=== PATIENT | female | born 1960 | race Caucasian/White ===

== ENCOUNTER 2021-08-31 22:56 | Inpatient (IN) | payer MEDICARE, SELFPAY ==
[2021-08-31 23:28] LABS: #Eosinphils 0.1 10x3/uL (0.0-0.5); #Monocytes 0.8 10x3/uL (0.0-1.1); #Neutrophils 3.2 10x3/uL (1.5-8.4); %Basophils 0.6 % (0.0-2.0); %Eosinophils 1.4 % (0.0-6.0); %Lymphocytes 41.6 % (18.0-47.0); %Monocytes 10.9 % (0.0-10.0); %Neutrophils 45.2 % (40.0-75.0); Hemoglobin 13.9 g/dL (12.0-15.5); Mean Corpuscular HGB CONC 33.9 g/dL (32.0-36.0); Mean Corpuscular Hemoglobin 29.2 pg (27.0-33.0); Mean Corpuscular Volume 86.1 fl (81.6-98.3); Platelet Count 337 10x3/uL (150-450); Red Blood Cell (RBC) Count 4.76 10x6/uL (3.90-5.03); White Blood Cell (WBC) Count 7.1 10x3/uL (3.5-10.5)
[2021-08-31 23:38] LABS: ALT (SGPT) 43 U/L (8-55); AST (SGOT) 19 U/L (5-34); Albumin 4.3 g/dL (3.5-5.0); Alkaline Phosphatase 125 U/L (40-110); Anion Gap 14 mmol/L (10-20); BUN (Urea Nitrogen) 11 mg/dL (9.8-20.1); Bilirubin, Total 0.2 mg/dL (0.2-1.2); Calc. Creatinine Clearance 0 mL/min (70-130); Calcium 9.4 mg/dL (7.8-10.44); Carbon Dioxide 29 mmol/L (22-29); Chloride 102 mmol/L (98-107); Globulin 2.6 g/dL (2.4-3.5); Glucose 131 mg/dL (70-105); Potassium 4.3 mmol/L (3.5-5.1); Protein, Total 6.9 g/dL (6.0-8.3); Sodium 141 mmol/L (136-145)
[2021-09-01] MEDS ORDERED: Morphine 4 MG/ML VIAL ONE ×2 (00:03→01:43)
[2021-09-01] MEDS ORDERED: Promethazine HCl 25 MG/ML VIAL ONE (00:03)
[2021-09-01] MEDS ORDERED: Guaifenesin DM 100-10/5 ML UDCUP PO PRN (01:45)
[2021-09-01] MEDS ORDERED: Calcium Carbonate 500 MG ChewTAB PO PRN (01:45)
[2021-09-01] MEDS ORDERED: Senokot S 8.6-50 MG TAB PO PRN (01:45)
[2021-09-01] MEDS ORDERED: Acetaminophen 325 MG TAB PO PRN (01:45)
[2021-09-01] MEDS ORDERED: Nitroglycerin 0.4 MG TAB (25 Tab Bottle) SL PRN (01:46)
[2021-09-01] MEDS ORDERED: Metoprolol Tartrate 25 MG TAB PO SCH (02:00)
[2021-09-01 02:25] VITALS: BMI 30.9
[2021-09-01] MEDS: HYDROcodone/Acetaminophen 5/325 mg Tablet PO PRN ×3 (02:36→10:54)
[2021-09-01] MEDS ORDERED: traZODone HCl 50 MG TAB PO SCH (03:30)
[2021-09-01] MEDS ORDERED: busPIRone HCl 15 MG TAB PO SCH ×3 (04:00→21:45)
[2021-09-01 04:10] LABS: SARS-CoV-2 NAA Rapid Test Not Detected (NotDetected)
[2021-09-01 05:01] LABS: Cardiac Risk 3.1 (Less than 4.5)
[2021-09-01] MEDS: Levothyroxine Sodium 25 MCG TAB PO SCH (06:29)
[2021-09-01] MEDS: Levothyroxine Sodium 112 MCG TAB PO SCH (06:29)
[2021-09-01] MEDS ORDERED: Sodium Chloride 0.9% 500 ML IV SCH (08:30)
[2021-09-01] MEDS ORDERED: Carvedilol 25 MG TAB PO SCH (09:00)
[2021-09-01] MEDS: Clopidogrel Bisulfate 75 MG TAB PO SCH (10:25)
[2021-09-01] MEDS: Amlodipine 10 MG TAB PO SCH (10:53)
[2021-09-01] MEDS: Enoxaparin Sodium 40 MG/0.4 ML SYRINGE SC SCH (10:55)
[2021-09-01 12:36] LABS: Hemoglobin A1c 5.5 % (4.0-6.0)
[2021-09-01 15:06] LABS: Amphetamine Not Detected (NotDetected); Barbiturates Screen Not Detected (NotDetected); Benzodiazepine Screen Not Detected (NotDetected); Cocaine Metabolite Screen Not Detected (NotDetected); Methadone Not Detected (NotDetected); Methamphetamine Not Detected (NotDetected); Opiate Screen Detected (NotDetected); Oxycodone Screen Not Detected (NotDetected); Phencyclidine (PCP) Not Detected (NotDetected); THC/Cannabinoid Screen Not Detected (NotDetected); Tricyclic Screen Detected (NotDetected)
[2021-09-01] MEDS: Morphine 2 MG/ML VIAL SLOW IVP PRN ×2 (15:14→20:51)
[2021-09-01] MEDS: Ondansetron PF 4 MG/2 ML Vial IVP PRN (15:15)
[2021-09-01] MEDS: Promethazine HCl 25 MG in Sodium Chloride 0.9% 50 ML IVPB PRN (17:05)
[2021-09-01] MEDS: traZODone HCl 50 MG TAB PO SCH (20:48)
[2021-09-01] MEDS ORDERED: Atorvastatin Calcium 40 MG TAB PO SCH (21:00)
[2021-09-02] MEDS: Levothyroxine Sodium 25 MCG TAB PO SCH (06:50)
[2021-09-02] MEDS: Levothyroxine Sodium 112 MCG TAB PO SCH (06:50)
[2021-09-02 08:31] LABS: Anion Gap 13 mmol/L (10-20); BUN (Urea Nitrogen) 12 mg/dL (9.8-20.1); Calc. Creatinine Clearance 82 mL/min (70-130); Calcium 8.9 mg/dL (7.8-10.44); Carbon Dioxide 31 mmol/L (22-29); Chloride 105 mmol/L (98-107); Glucose 97 mg/dL (70-105); Magnesium 2.1 mg/dL (1.6-2.6); Potassium 4.3 mmol/L (3.5-5.1); Sodium 145 mmol/L (136-145)
[2021-09-02] MEDS ORDERED: busPIRone HCl 15 MG TAB PO SCH (09:00)
[2021-09-02] MEDS: busPIRone HCl 15 MG TAB PO SCH ×2 (09:33→22:14)
[2021-09-02] MEDS: Amlodipine 10 MG TAB PO SCH (09:33)
[2021-09-02] MEDS: Venlafaxine HCl XR 75 MG CAP PO SCH (09:33)
[2021-09-02] MEDS: Clopidogrel Bisulfate 75 MG TAB PO SCH (09:34)
[2021-09-02] MEDS: HYDROcodone/Acetaminophen 5/325 mg Tablet PO PRN ×4 (09:34→22:14)
[2021-09-02] MEDS: Enoxaparin Sodium 40 MG/0.4 ML SYRINGE SC SCH (09:34)
[2021-09-02] MEDS: Promethazine HCl 25 MG in Sodium Chloride 0.9% 50 ML IVPB PRN ×3 (11:42→23:53)
[2021-09-02 15:01] LABS: ALT (SGPT) 358 U/L (8-55); AST (SGOT) 234 U/L (5-34); Albumin 3.5 g/dL (3.5-5.0); Alkaline Phosphatase 141 U/L (40-110); Bilirubin, Direct 0.1 mg/dL (0.1-0.3); Bilirubin, Total 0.3 mg/dL (0.2-1.2); Lipase 36 U/L (8-78); Protein, Total 5.8 g/dL (6.0-8.3)
[2021-09-02] MEDS ORDERED: Lidocaine 2% Viscous Solution 20 ML, Aluminum & Magnesium Hydroxide 30 ML SSW SCH (18:00)
[2021-09-02 18:51] LABS: #Basophils 0.1 10x3/uL (0.0-0.2); #Eosinphils 0.1 10x3/uL (0.0-0.5); #Monocytes 0.5 10x3/uL (0.0-1.1); %Basophils 0.9 % (0.0-2.0); %Eosinophils 2.4 % (0.0-6.0); %Lymphocytes 43.1 % (18.0-47.0); %Monocytes 8.9 % (0.0-10.0); Hemoglobin 13.9 g/dL (12.0-15.5); Mean Corpuscular HGB CONC 33.5 g/dL (32.0-36.0); Mean Corpuscular Hemoglobin 28.8 pg (27.0-33.0); Mean Corpuscular Volume 85.9 fl (81.6-98.3); Mean Platelet Volume 10.2 fl (7.4-10.4); Platelet Count 321 10x3/uL (150-450); RBC Distribution Width 13.1 % (11.5-14.5); Red Blood Cell (RBC) Count 4.83 10x6/uL (3.90-5.03); White Blood Cell (WBC) Count 5.8 10x3/uL (3.5-10.5)
[2021-09-02 19:01] LABS: #Neutrophils 2.6 10x3/uL (1.5-8.4); %Neutrophils 44.7 % (40.0-75.0)
[2021-09-02] MEDS: traZODone HCl 50 MG TAB PO SCH (22:14)
[2021-09-02] MEDS: Ondansetron PF 4 MG/2 ML Vial IVP PRN (22:59)
[2021-09-03 02:18] LABS: Hemoglobin A1c 5.5 % (4.0-6.0)
[2021-09-03 04:53] LABS: Hemoglobin 12.9 g/dL (12.0-15.5); Mean Corpuscular HGB CONC 34.6 g/dL (32.0-36.0); Mean Corpuscular Hemoglobin 29.5 pg (27.0-33.0); Mean Corpuscular Volume 85.2 fl (81.6-98.3); Mean Platelet Volume 9.9 fl (7.4-10.4); Platelet Count 294 10x3/uL (150-450); RBC Distribution Width 13.1 % (11.5-14.5); Red Blood Cell (RBC) Count 4.38 10x6/uL (3.90-5.03); White Blood Cell (WBC) Count 6.2 10x3/uL (3.5-10.5)
[2021-09-03] MEDS: Levothyroxine Sodium 125 MCG TAB PO SCH (05:05)
[2021-09-03 05:10] LABS: INR-International Normal Ratio 0.9; PTT 24.5 sec (22.0-33.0); Prothrombin Time 9.5 sec (9.5-12.1)
[2021-09-03 05:12] LABS: Iron 48 ug/dL (50-170); Iron Binding Capacity, Total 300 mcg/dL (265-497)
[2021-09-03 05:16] LABS: ALT (SGPT) 221 U/L (8-55); AST (SGOT) 69 U/L (5-34); Albumin 3.4 g/dL (3.5-5.0); Alkaline Phosphatase 134 U/L (40-110); Anion Gap 11 mmol/L (10-20); BUN (Urea Nitrogen) 15 mg/dL (9.8-20.1); Bilirubin, Total 0.2 mg/dL (0.2-1.2); Calc. Creatinine Clearance 89 mL/min (70-130); Calcium 8.9 mg/dL (7.8-10.44); Carbon Dioxide 31 mmol/L (22-29); Cardiac Risk 3.7 (Less than 4.5); Chloride 105 mmol/L (98-107); Cholesterol 154 mg/dl (< 200 Desired); Globulin 2.6 g/dL (2.4-3.5); Glucose 109 mg/dL (70-105); HDL Cholesterol 42 mg/dL (>60 Neg Risk); Iron 48 ug/dL (50-170); Iron Binding Capacity, Total 305 mcg/dL (265-497); LDL Cholesterol, Calculated 81 mg/dL; Magnesium 2.1 mg/dL (1.6-2.6); Potassium 3.9 mmol/L (3.5-5.1); Sodium 143 mmol/L (136-145); Triglycerides 156 mg/dL (Less than 150)
[2021-09-03 05:32] LABS: Ferritin 22.26 ng/mL (10-291)
[2021-09-03 06:37] LABS: MDiff Complete? YES
[2021-09-03 06:38] LABS: Platelet Morphology Comment Appears Adequate; RBC Morphology Normal
[2021-09-03 06:40] LABS: Band 1 % (5-11); Eosinophils 2 % (0-10); Lymphocytes 46 % (21-51); Monocytes 7 % (0-10); Neutrophil 44 % (42-75)
[2021-09-03] MEDS: busPIRone HCl 15 MG TAB PO SCH ×2 (08:33→21:13)
[2021-09-03] MEDS: HYDROcodone/Acetaminophen 5/325 mg Tablet PO PRN ×3 (08:33→21:14)
[2021-09-03] MEDS: Clopidogrel Bisulfate 75 MG TAB PO SCH (08:33)
[2021-09-03] MEDS: Enoxaparin Sodium 40 MG/0.4 ML SYRINGE SC SCH (08:35)
[2021-09-03] MEDS: Promethazine HCl 25 MG in Sodium Chloride 0.9% 50 ML IVPB PRN ×3 (08:35→21:13)
[2021-09-03] MEDS: Venlafaxine HCl XR 75 MG CAP PO SCH (08:37)
[2021-09-03] MEDS ORDERED: Iopamidol 300 61% 100 ML VIAL FS ONE (10:15)
[2021-09-03 15:23] LABS: HBCM Index 0.09 S/CO (0-0.79); HBSAg Index 0.21 S/CO (0-0.99); Hep A IgM AB Non-Reactive (NonReactive); Hep A IgM S/CO 0.37 S/CO (0-0.79); Hep B Surf Ag Non-Reactive S/CO (NonReactive); Hep C IgG Ab Non-Reactive (NonReactive); Hep C Index 0.52 S/CO (0-0.79); Hepatitis B Core IgM Abs Non-Reactive (NonReactive)
[2021-09-03] MEDS: traZODone HCl 50 MG TAB PO SCH (21:14)
[2021-09-04 05:02] LABS: #Eosinphils 0.2 10x3/uL (0.0-0.5); #Monocytes 0.8 10x3/uL (0.0-1.1); #Neutrophils 2.7 10x3/uL (1.5-8.4); %Basophils 0.6 % (0.0-2.0); %Eosinophils 2.4 % (0.0-6.0); %Monocytes 12.4 % (0.0-10.0); %Neutrophils 40.5 % (40.0-75.0); Hemoglobin 12.7 g/dL (12.0-15.5); Mean Corpuscular Hemoglobin 28.9 pg (27.0-33.0); Mean Platelet Volume 10.4 fl (7.4-10.4); Platelet Count 305 10x3/uL (150-450); RBC Distribution Width 13.2 % (11.5-14.5); White Blood Cell (WBC) Count 6.7 10x3/uL (3.5-10.5)
[2021-09-04] MEDS: Levothyroxine Sodium 125 MCG TAB PO SCH (05:03)
[2021-09-04 05:12] LABS: ALT (SGPT) 171 U/L (8-55); AST (SGOT) 52 U/L (5-34); Albumin 3.6 g/dL (3.5-5.0); Alkaline Phosphatase 134 U/L (40-110); Anion Gap 13 mmol/L (10-20); BUN (Urea Nitrogen) 10 mg/dL (9.8-20.1); Bilirubin, Total 0.2 mg/dL (0.2-1.2); Calc. Creatinine Clearance 90 mL/min (70-130); Calcium 9.2 mg/dL (7.8-10.44); Carbon Dioxide 29 mmol/L (22-29); Chloride 104 mmol/L (98-107); Globulin 2.5 g/dL (2.4-3.5); Glucose 100 mg/dL (70-105); Magnesium 2.2 mg/dL (1.6-2.6); Potassium 3.7 mmol/L (3.5-5.1); Protein, Total 6.1 g/dL (6.0-8.3); Sodium 142 mmol/L (136-145)
[2021-09-04 06:00] LABS: Actual Bicarbonate (HCO3v) 31 mEq/L (22-28); Base Excess 5.2 mEq/L (-2.0 to +3.0); pH (venous) 7.42 (7.32-7.43)
[2021-09-04 06:01] LABS: Hemoglobin (Hb) 13.4 g/dL (11.7-16.0)
[2021-09-04 06:08] LABS: Chloride (VBG) 104 mmol/L (98-106); Sodium 144.1 mmol/L (133-146)
[2021-09-04 06:09] LABS: Calcium, Ionized (venous) 1.11 mmol/L (1.16-1.32)
[2021-09-04 06:14] LABS: Puncture Site Other Site
[2021-09-04] MEDS: Promethazine HCl 25 MG in Sodium Chloride 0.9% 50 ML IVPB PRN ×3 (06:20→23:06)
[2021-09-04] MEDS: busPIRone HCl 15 MG TAB PO SCH ×2 (10:00→19:51)
[2021-09-04] MEDS: Venlafaxine HCl XR 75 MG CAP PO SCH (10:01)
[2021-09-04] MEDS: Enoxaparin Sodium 40 MG/0.4 ML SYRINGE SC SCH (10:14)
[2021-09-04] MEDS: Clopidogrel Bisulfate 75 MG TAB PO SCH (10:14)
[2021-09-04] MEDS: traZODone HCl 50 MG TAB PO SCH (19:52)
[2021-09-04] MEDS: HYDROcodone/Acetaminophen 5/325 mg Tablet PO PRN (19:52)
[2021-09-05 03:53] LABS: #Basophils 0.1 10x3/uL (0.0-0.2); #Eosinphils 0.1 10x3/uL (0.0-0.5); #Monocytes 0.8 10x3/uL (0.0-1.1); #Neutrophils 2.9 10x3/uL (1.5-8.4); %Basophils 0.8 % (0.0-2.0); %Eosinophils 2.1 % (0.0-6.0); %Lymphocytes 41.3 % (18.0-47.0); %Monocytes 12.3 % (0.0-10.0); %Neutrophils 43.3 % (40.0-75.0); Mean Corpuscular HGB CONC 33.7 g/dL (32.0-36.0); Mean Platelet Volume 10.2 fl (7.4-10.4); Platelet Count 300 10x3/uL (150-450); RBC Distribution Width 13.3 % (11.5-14.5); Red Blood Cell (RBC) Count 4.49 10x6/uL (3.90-5.03); White Blood Cell (WBC) Count 6.6 10x3/uL (3.5-10.5)
[2021-09-05] MEDS: HYDROcodone/Acetaminophen 5/325 mg Tablet PO PRN ×2 (03:54→22:19)
[2021-09-05 04:06] LABS: ALT (SGPT) 190 U/L (8-55); AST (SGOT) 87 U/L (5-34); Albumin 3.7 g/dL (3.5-5.0); Alkaline Phosphatase 140 U/L (40-110); Anion Gap 13 mmol/L (10-20); BUN (Urea Nitrogen) 9 mg/dL (9.8-20.1); Bilirubin, Total 0.2 mg/dL (0.2-1.2); Calc. Creatinine Clearance 84 mL/min (70-130); Carbon Dioxide 28 mmol/L (22-29); Chloride 106 mmol/L (98-107); Globulin 2.6 g/dL (2.4-3.5); Glucose 108 mg/dL (70-105); Magnesium 2.1 mg/dL (1.6-2.6); Potassium 3.6 mmol/L (3.5-5.1); Protein, Total 6.3 g/dL (6.0-8.3); Sodium 143 mmol/L (136-145)
[2021-09-05] MEDS: Promethazine HCl 25 MG in Sodium Chloride 0.9% 50 ML IVPB PRN ×3 (05:08→19:40)
[2021-09-05] MEDS: Levothyroxine Sodium 125 MCG TAB PO SCH (05:08)
[2021-09-05] MEDS ORDERED: Levothyroxine 150 MCG TAB PO SCH (09:00)
[2021-09-05] MEDS: busPIRone HCl 15 MG TAB PO SCH ×2 (09:44→22:14)
[2021-09-05] MEDS: Clopidogrel Bisulfate 75 MG TAB PO SCH (09:45)
[2021-09-05] MEDS: Venlafaxine HCl XR 75 MG CAP PO SCH (09:45)
[2021-09-05] MEDS: Enoxaparin Sodium 40 MG/0.4 ML SYRINGE SC SCH (09:45)
[2021-09-05] MEDS ORDERED: Midazolam HCl 2 mg/2 ml Vial ONE ×2 (13:30→13:32)
[2021-09-05] MEDS ORDERED: PROPOFOL 20 ML ONE (13:30)
[2021-09-05] MEDS ORDERED: PROPOFOL 0 ML ONE (13:30)
[2021-09-05] MEDS: traZODone HCl 50 MG TAB PO SCH (22:15)
[2021-09-06 04:10] LABS: #Basophils 0.1 10x3/uL (0.0-0.2); #Eosinphils 0.2 10x3/uL (0.0-0.5); #Monocytes 0.7 10x3/uL (0.0-1.1); #Neutrophils 2.6 10x3/uL (1.5-8.4); %Basophils 1.1 % (0.0-2.0); %Eosinophils 2.5 % (0.0-6.0); %Neutrophils 40.2 % (40.0-75.0); Hemoglobin 12.8 g/dL (12.0-15.5); Mean Corpuscular HGB CONC 33.2 g/dL (32.0-36.0); Mean Corpuscular Hemoglobin 28.8 pg (27.0-33.0); Mean Corpuscular Volume 86.5 fl (81.6-98.3); Mean Platelet Volume 10.2 fl (7.4-10.4); Platelet Count 300 10x3/uL (150-450); RBC Distribution Width 13.4 % (11.5-14.5); Red Blood Cell (RBC) Count 4.45 10x6/uL (3.90-5.03); White Blood Cell (WBC) Count 6.5 10x3/uL (3.5-10.5)
[2021-09-06] MEDS: Promethazine HCl 25 MG in Sodium Chloride 0.9% 50 ML IVPB PRN (04:22)
[2021-09-06 04:35] LABS: ALT (SGPT) 169 U/L (8-55); AST (SGOT) 70 U/L (5-34); Albumin 3.4 g/dL (3.5-5.0); Alkaline Phosphatase 135 U/L (40-110); Anion Gap 12 mmol/L (10-20); BUN (Urea Nitrogen) 11 mg/dL (9.8-20.1); Bilirubin, Total 0.1 mg/dL (0.2-1.2); Calc. Creatinine Clearance 88 mL/min (70-130); Calcium 8.9 mg/dL (7.8-10.44); Carbon Dioxide 27 mmol/L (22-29); Chloride 106 mmol/L (98-107); Globulin 2.7 g/dL (2.4-3.5); Glucose 117 mg/dL (70-105); Magnesium 2.1 mg/dL (1.6-2.6); Potassium 4.1 mmol/L (3.5-5.1); Protein, Total 6.1 g/dL (6.0-8.3); Sodium 141 mmol/L (136-145)
[2021-09-06] MEDS: Levothyroxine Sodium 125 MCG TAB PO SCH (05:38)
[2021-09-06] MEDS: Enoxaparin Sodium 40 MG/0.4 ML SYRINGE SC SCH (11:35)
[2021-09-06] MEDS: busPIRone HCl 15 MG TAB PO SCH (11:35)
[2021-09-06] MEDS: Clopidogrel Bisulfate 75 MG TAB PO SCH (11:35)
[2021-09-06] MEDS: Venlafaxine HCl XR 75 MG CAP PO SCH (11:35)
[2021-09-06] MEDS: HYDROcodone/Acetaminophen 5/325 mg Tablet PO PRN (11:36)
[2021-09-06 12:33] VITALS: BP 142/66; TEMP 98
== END 2021-09-06 13:35 | disposition home or self-care (01) | DRG 313 ==
LOC: CSHERS 22:56 → UNDOADMOB 09-01 02:16 → CSHTELE 09-01 02:16 → OBSVTOIN 09-05 20:04 → INTOOBSV 09-05 20:04
PROVIDERS: ADMIT Student in an Organized Health Care Education/Training Program; ATTEND Family Medicine
PROC: 0DB58ZX Excision of Esophagus, Via Natural or Artificial Opening Endoscopic, Diagnostic (ICD-10-PCS; principal; 2021-09-05)
DX: R07.89 Other chest pain (principal); Z20.822 Contact with and (suspected) exposure to COVID-19; F41.9 Anxiety disorder, unspecified; F31.9 Bipolar disorder, unspecified; E78.5 Hyperlipidemia, unspecified; I25.111 Atherosclerotic heart disease of native coronary artery with angina pectoris with documented spasm; E03.9 Hypothyroidism, unspecified; F17.210 Nicotine dependence, cigarettes, uncomplicated; I12.9 Hypertensive chronic kidney disease with stage 1 through stage 4 chronic kidney disease, or unspecified chronic kidney disease; I95.9 Hypotension, unspecified; N18.2 Chronic kidney disease, stage 2 (mild); M54.10 Radiculopathy, site unspecified; K22.70 Barrett's esophagus without dysplasia; G43.909 Migraine, unspecified, not intractable, without status migrainosus; K44.9 Diaphragmatic hernia without obstruction or gangrene; R63.0 Anorexia; R74.01 Elevation of levels of liver transaminase levels; Z88.1 Allergy status to other antibiotic agents; Z79.899 Other long term (current) drug therapy; Z79.02 Long term (current) use of antithrombotics/antiplatelets; Z95.5 Presence of coronary angioplasty implant and graft; Z79.890 Hormone replacement therapy; Z79.82 Long term (current) use of aspirin; Z90.49 Acquired absence of other specified parts of digestive tract; Z90.710 Acquired absence of both cervix and uterus; Z82.49 Family history of ischemic heart disease and other diseases of the circulatory system; Z91.19 Patient's noncompliance with other medical treatment and regimen; Z88.8 Allergy status to other drugs, medicaments and biological substances; Z68.30 Body mass index [BMI] 30.0-30.9, adult
CPT/HCPCS: 36415; 36416; 71045; 74177; 76705; 80048; 80053; 80061; 80074; 80076; 80306; 82728; 82805; 83036; 83540; 83550; 83690; 83735; 83880; 84439; 84443; 84484; 85025; 85379; 85610; 85730; 87798; 88305; 93005; 93010; 93306; 96372; 96374; 96375; 96376; G0378; J1650; J2250; J2270; J2405; J2550; J2704; J7030; Q9967; U0002

== ENCOUNTER 2024-11-15 01:19 | Observation (INO) | payer MEDICARE ==
[2024-11-15 02:41] VITALS: BMI 36.1
[2024-11-15] MEDS ORDERED: Ondansetron PF 4 MG/2 ML Vial IVP PRN (02:56)
[2024-11-15 03:22] LABS: #Basophils 0.05 10x3/uL (0.0-0.2); #Eosinophils Less than 0.03 10x3/uL (0.0-0.5); #Monocytes 0.04 10x3/uL (0.0-1.1); #Neutrophils 6.99 10x3/uL (1.5-8.4); %Basophils 0.6 % (0.0-2.0); %Eosinophils 0.0 % (0.0-6.0); %Lymphocytes 12.1 % (18.0-47.0); %Monocytes 0.5 % (0.0-10.0); %Neutrophils 86.6 % (40.0-75.0); Hematocrit 40.9 % (34.9-44.5); Hemoglobin 12.8 g/dL (12.0-15.5); Mean Corpuscular Hemoglobin 24.2 pg (27.0-33.0); Mean Corpuscular Volume 77.2 fL (81.6-98.3); Platelet Count 393 10x3/uL (150-450); Red Blood Cell (RBC) Count 5.30 10x6/uL (3.90-5.03); White Blood Cell (WBC) Count 8.08 10x3/uL (3.5-10.5)
[2024-11-15 03:50] LABS: ALT (SGPT) 38 U/L (Less than 34); AST (SGOT) 30 U/L (11-34); Albumin 4.6 g/dL (3.1-4.5); Alkaline Phosphatase 130 U/L (40-110); Anion Gap 20 mmol/L (10-20); BUN (Urea Nitrogen) 10 mg/dL (9.8-20.1); Bilirubin, Total 0.3 mg/dL (0.3-1.2); Calc. Creatinine Clearance 83 mL/min (70-130); Calcium 9.2 mg/dL (7.8-10.44); Carbon Dioxide 21 mmol/L (23-31); Chloride 106 mmol/L (98-107); Globulin 3.5 g/dL (2.4-3.5); Glucose 137 mg/dL (80-115); Potassium 4.1 mmol/L (3.5-5.1); Sodium 143 mmol/L (136-145)
[2024-11-15] MEDS ORDERED: Aspirin/APAP/Caffeine Tab (Excedrin Migraine) PO PRN (06:14)
[2024-11-15] MEDS: Acetaminophen 325 MG TAB PO SCH (06:49)
[2024-11-15 06:52] LABS: Troponin I Less than 0.010 ng/mL (< 0.028)
[2024-11-15] MEDS: DULoxetine 30 MG CAP PO SCH (08:08)
[2024-11-15] MEDS: QUEtiapine 100 MG TAB PO SCH (08:09)
[2024-11-15] MEDS: Carvedilol 6.25 MG TAB PO SCH (08:09)
[2024-11-15] MEDS: Pantoprazole 40 MG DR.TAB PO SCH (08:09)
[2024-11-15] MEDS: Famotidine/PF 20 mg/2ml Vial SLOW IVP SCH (08:09)
[2024-11-15] MEDS ORDERED: Nitroglycerin 0.4 MG TAB (25 Tab Bottle) SL PRN (08:13)
[2024-11-15] MEDS: Aspirin Chewable 81 MG TAB PO SCH (08:57)
[2024-11-15 08:59] LABS: Troponin I Less than 0.010 ng/mL (< 0.028)
[2024-11-15] MEDS: PNEUMOC 20-VAL CONJ-DIP CRM/PF 0.5 ML SYRINGE IM ONE (12:40)
[2024-11-15] MEDS: Carvedilol 12.5 MG TAB PO SCH (12:53)
[2024-11-15] MEDS: Carvedilol 25 MG TAB PO SCH (17:09)
[2024-11-15] MEDS: Butalbital 50 MG/Aspirin 325 MG/Caffeine 40 MG CAPSULE PO PRN (17:10)
[2024-11-15] MEDS ORDERED: TRAZODONE HCL 100 MG PO SCH (21:00)
[2024-11-16 05:16] LABS: Cardiac Risk 2.6 (Less than 4.5); Cholesterol 143.0 mg/dl (< 200 Desired); HDL Cholesterol 54.0 mg/dL (>60 Neg Risk); LDL Cholesterol, Calculated 70.0 mg/dL; Triglycerides 97.0 mg/dL (Less than 150)
[2024-11-16 08:28] VITALS: BP 156/94
[2024-11-16 08:36] VITALS: TEMP 98
== END 2024-11-16 13:52 | disposition home or self-care (01) ==
LOC: CSHTELE 01:59
PROVIDERS: ADMIT Hospitalist; ATTEND Hospitalist
PROC: B24BZZZ Ultrasonography of Heart with Aorta (ICD-10-PCS; principal; 2024-11-15)
DX: R07.89 Other chest pain (principal); I25.10 Atherosclerotic heart disease of native coronary artery without angina pectoris; I10 Essential (primary) hypertension; E78.5 Hyperlipidemia, unspecified; E03.9 Hypothyroidism, unspecified; F41.9 Anxiety disorder, unspecified; F32.A Depression, unspecified; K21.9 Gastro-esophageal reflux disease without esophagitis; G43.909 Migraine, unspecified, not intractable, without status migrainosus; Z95.5 Presence of coronary angioplasty implant and graft; Z90.49 Acquired absence of other specified parts of digestive tract; Z88.8 Allergy status to other drugs, medicaments and biological substances; Z88.1 Allergy status to other antibiotic agents; Z88.6 Allergy status to analgesic agent; Z79.890 Hormone replacement therapy; Z79.899 Other long term (current) drug therapy
CPT/HCPCS: 70450; 80053; 80061; 84484 ×2; 85025; 85379; 93005; 93306; J1308 ×2; J2270 ×2; J7030 ×2; 36415; 93010; 96374; 96375; 96376; G0378